=== PATIENT | male | born 1955 | race Caucasian/White ===

== ENCOUNTER → 2021-09-24 04:56 | Outpatient (CLI) | payer BC, SELFPAY ==
[2021-09-24 11:58] LABS: SARS-CoV-2 RNA PCR Negative
== END ==
PROVIDERS: PCP Family Medicine; Visit Provider Family Medicine
DX: R50.9 Fever, unspecified (principal); Z20.822 Contact with and (suspected) exposure to COVID-19
CPT/HCPCS: C9803; U0003; U0005

== ENCOUNTER 2021-10-25 01:35 | Day surgery (SDC) | payer BC, SELFPAY ==
[2021-08-30 15:07] VITALS: BMI 35.9
[2021-10-07 12:57] VITALS: BMI 35.9
--- NOTE | 2021-10-07 12:58 | PC.NURSE ---
Patient states there has been no changes in health history since last phone call. Updated on arrival time and prep instructions.
[2021-10-25 09:20] VITALS: BP 159/79; PULSE 57; RESP 20; TEMP 36.4; O2SAT 99; BMI 35.4
[2021-10-25] MEDS: LACTATED RINGERS 1,000 ML 150 ML IV CONT (09:41)
--- NOTE | 2021-10-25 09:47 | PM.IMHP ---
H&P: HPI History of Present Illness Date/Time: 10/25/21 09:47 Chief Complaint: History of rectal cancer Narrative: This is a 66-year-old white male patient presents for colonoscopy. Patient has a history of rectal carcinoma status post resection 2007. Most recent colonoscopy 2019 revealed no recurrent polyps. Patient family history is significant both father and grandfather have had colon cancer. Patient presents today for surveillance follow-up colonoscopy. Review of Systems Review of Systems: review of systems is noncontributory. [facility] Surgical History Surgical History H/O colonoscopy H/O resection of rectum Family History Family History Mother Hypertension Acute myocardial infarction, Onset Age: 55 Cerebrovascular accident Family history of coronary artery disease Family history of malignant neoplasm of breast in first degree relative Grandparent Hypertension, Onset Age: 50 Acute myocardial infarction, Onset Age: 50 Carcinoma of colon Family history of coronary artery disease, Onset Age: 50 Father Carcinoma of colon Sibling Family history of malignant neoplasm of brain Social History Social History Smoking status: Never smoker Alcohol intake: never Substance use: never Substance use type: does not use Living arrangements: with family Spiritual care concerns: No Meds Home Medications and Allergies Home Medications Medication Instructions Recorded Confirmed Type ostomy adhesive (Stomahesive Paste) 1 applic miscellaneous DAILY 06/03/19 10/25/21 History ostomy supplies (Adhesive Remover #50 ea 06/03/19 10/25/21 History Wipes) ostomy supplies (Protective #1 ea 06/03/19 10/25/21 History Barrier Film Wipes) ostomy supplies (Stomahesive #28.3 grams 06/03/19 10/25/21 History Protective Powder) ostomy supplies 1 3/4 (Natura #1 ea 06/03/19 10/25/21 History Closed Pouch) ostomy supplies 1 3/4 (Natura #1 ea 06/03/19 10/25/21 History Durahesive Skin Barrier) omega 1-ghw-ugy-fish oil 1,200 mg See Rx Instructions PO .COMPLEX 10/04/19 10/25/21 History (144 mg-216 mg) capsule (Fish Oil) sodium sul 1.479 gram-potas ch See Rx Instructions PO PER PKG DIR 08/31/21 10/25/21 Rx 0.188 gram-magnes sul 0.225 gram #24 tabs tablet (Sutab) telmisartan 40 mg tablet See Rx Instructions .Route 10/19/21 10/25/21 Rx .COMPLEX #90 tabs Allergies Allergy/AdvReac Type Severity Reaction Status Date / Time No Known Allergies Allergy Verified 10/25/21 09:26 Vital Signs Vital Signs - 24 hr 10/25/21 09:20 Temperature 97.5 F L Pulse Rate 57 L Respiratory Rate 20 Blood Pressure 159/79 H Pulse Oximetry 99 Oxygen Delivery Room Air Exam Narrative: Physical exam reveals patient be alert. Vital signs stable. HEENT exam is unremarkable. Patient is anicteric. Lungs are clear to auscultation and percussion. Heart is without murmur or extra sounds. Abdomen is obese. Bowel sounds present soft nontender right lower quadrant colostomy appears to be functioning well. Assessment and Plan Assessment and plan (1) History of rectal or anal cancer: Code(s): Z85.048 - Personal history of other malignant neoplasm of rectum, rectosigmoid junction, and anus Status: Acute Assessment and Plan: Patient has a history of rectal cancer and subsequent colostomy in 2007. Plan is for surveillance colonoscopy now and at 3 year intervals. (2) Family history of colon cancer in father: Code(s): Z80.0 - Family history of malignant neoplasm of digestive organs Status: Acute Assessment and Plan: Patient says father and grandfather both have had colon cancer. Continued surveillance at intervals is advised.
--- NOTE | 2021-10-25 09:58 | WPDANESEPPF ---
Anes - Initial Pre Proc Eval Procedure: Operation Date: 10/25/21 10:00 Proposed Procedures p Screening Colonoscopy - Donavon Davies MD Date/Time: 10/25/21 09:58 Surgeon: Donavon Davies MD Pre Op Diagnosis: hx of rectal ca, neoplasm screening Patient Data Age: 66 Gender: M Height: 1.73 m Weight: 105.6 kg Last Vital Signs Temp 97.5 F L 10/25/21 09:20 Pulse 57 L 10/25/21 09:20 Resp 20 10/25/21 09:20 BP 159/79 H 10/25/21 09:20 Pulse Ox 99 10/25/21 09:20 O2 Del Method Room Air 10/25/21 09:20 Allergies Allergy/AdvReac Type Severity Reaction Status Date / Time No Known Allergies Allergy Verified 10/25/21 09:26 Home Medications Medication Instructions Recorded Confirmed Type ostomy adhesive (Stomahesive Paste) 1 applic miscellaneous DAILY 06/03/19 10/25/21 History ostomy supplies (Adhesive Remover #50 ea 06/03/19 10/25/21 History Wipes) ostomy supplies (Protective #1 ea 06/03/19 10/25/21 History Barrier Film Wipes) ostomy supplies (Stomahesive #28.3 grams 06/03/19 10/25/21 History Protective Powder) ostomy supplies 1 3/4 (Natura #1 ea 06/03/19 10/25/21 History Closed Pouch) ostomy supplies 1 3/4 (Natura #1 ea 06/03/19 10/25/21 History Durahesive Skin Barrier) omega 9-rht-liz-fish oil 1,200 mg See Rx Instructions PO .COMPLEX 10/04/19 10/25/21 History (144 mg-216 mg) capsule (Fish Oil) sodium sul 1.479 gram-potas ch See Rx Instructions PO PER PKG DIR 08/31/21 10/25/21 Rx 0.188 gram-magnes sul 0.225 gram #24 tabs tablet (Sutab) telmisartan 40 mg tablet See Rx Instructions .Route 10/19/21 10/25/21 Rx .COMPLEX #90 tabs Patient hx anesthesia problems: none Family hx anesthesia problems: none Results Review: All pre-operative results and documents have been reviewed as part of the pre-operative evaluation. [facility] Surgical History Surgical History H/O colonoscopy H/O resection of rectum Family History Family History Mother Hypertension Acute myocardial infarction, Onset Age: 55 Cerebrovascular accident Family history of coronary artery disease Family history of malignant neoplasm of breast in first degree relative Grandparent Hypertension, Onset Age: 50 Acute myocardial infarction, Onset Age: 50 Carcinoma of colon Family history of coronary artery disease, Onset Age: 50 Father Carcinoma of colon Sibling Family history of malignant neoplasm of brain Social History Social History Smoking status: Never smoker Alcohol intake: never Substance use: never Substance use type: does not use Living arrangements: with family Spiritual care concerns: No Anes - Eval Final PreProcedure Day of Procedure 10/25/21 09:58 Patient weight: obese Heart: regular rate and rhythm Lungs: clear to auscultation Airway: Mallampati scale class II Neurological: alert and oriented Last oral intake: >/= 8 hours ASA classification: III Emergent: no Anesthetic plan: proceed Results Review: All pre-operative results and documents have been reviewed as part of the pre-operative evaluation. Informed Consent: The patient's anesthetic plan and its attendant risks and benefits were discussed with the patient/family/POA. Questions were solicited and answers provided to the satisfaction of the patient/family/POA.
[2021-10-25 10:39] VITALS: BP 115/75; PULSE 55; RESP 24; O2SAT 99
[2021-10-25 10:49] VITALS: BP 110/69; PULSE 50; RESP 16; O2SAT 99
[2021-10-25 10:59] VITALS: BP 127/69; PULSE 50; RESP 16; O2SAT 99
== END 2021-10-25 11:05 | disposition home or self-care (01) ==
PROVIDERS: PCP Family Medicine; Visit Provider Internal Medicine Gastroenterology
PROC: 0DJD8ZZ Inspection of Lower Intestinal Tract, Via Natural or Artificial Opening Endoscopic (ICD-10-PCS; CPT 45378; principal; 2021-10-25 10:00)
DX: Z12.11 Encounter for screening for malignant neoplasm of colon (principal); Z85.048 Personal history of other malignant neoplasm of rectum, rectosigmoid junction, and anus; Z80.0 Family history of malignant neoplasm of digestive organs; Z93.3 Colostomy status; E66.9 Obesity, unspecified; Z68.35 Body mass index [BMI] 35.0-35.9, adult
CPT/HCPCS: 45378; J2704; J7120

== ENCOUNTER 2023-11-29 09:34 | Inpatient (IN) | payer MEDICARE, SELFPAY ==
--- NOTE | ~2023-11-29 | XR_ITS ---
XR abdomen gastric tube insert Ordering provider: Avi Trujillo MD History: . ng tube checking placement . Comparison: None. FINDINGS: BOWEL: Nasogastric tube with the tip in the,. The sidehole is at the gastroesophageal junction. Advan cement by 3 to 4 cm is advised. Slightly dilated bowel loops. ORGANOMEGALY: None. SIGNIFICANT PATHOLOGIC CALCIFICATIONS: None. OTHER: No free air is seen under the diaphragm. IMPRESSION: NO definite ACUTE ABDOMINAL FINDINGS. Nasogastric tube placement. Advancement by 3-4 cm is advised. Reviewed, dictated and finalized at location A.
--- NOTE | ~2023-11-29 | XR_ITS ---
EXAMINATION: XR sm bowel follow through WS DATE: 11/30/2023 16:23 INDICATION: Parastomal hernia. Small bowel obstruction. TECHNIQUE: Advertising Operations Coordinator radiograph(s) of the abdomen was/were obtained. Water-soluble oral contrast was admi nistered, and sequential radiographs of the abdomen were obtained until oral contrast was noted to be in the proximal colon. COMPARISON: CT dated 11/29/2023 FINDINGS: Nasogastric tube tip in proximal side port in the body of the stomach and the quality assurance test program manager image. There is a moderate amount of colonic stool and a few mildly dilated gas-filled loops of small bowel in the sco ut image. Transit time from the stomach to proximal colon was approximately 4 hours. There is normal caliber and mucosal fold pattern throughout the small bowel on the imaging following administration o f contrast. IMPRESSION: 1. Delayed small bowel transit contrast requiring 4 hours to reach the colon but without small bowel dilation which could represent an ileus, partial or resolving small bowel obstruction. Reviewed, dictated and finalized at location A. IMPRESSION: 1. Delayed small bowel transit contrast requiring 4 hours to reach the colon bu t without small bowel dilation which could represent an ileus, partial or resol ving small bowel obstruction.
--- NOTE | ~2023-11-29 | XR_ITS ---
EXAMINATION: XR abdomen obstructive series DATE: 12/01/2023 05:43 INDICATION: Small bowel obstruction. TECHNIQUE: Upright and supine views of the abdomen on 3 radiographs were obtained. COMPARISON: CT abdomen and pelvis 11/29/2023 FINDINGS: There are dilated loops of small bowel. The colon is normal in caliber. There is oral contr ast in the colon. No free intraperitoneal gas. The nasogastric tube tip is in the stomach. IMPRESSION: 1. Persistently dilated small bowel, consistent with partial small bowel obstruction. Reviewed, dictated and finalized at location A. IMPRESSION: 1. Persistently dilated small bowel, consistent with partial small bowel obstru ction.
--- NOTE | ~2023-11-29 | CT_ITS ---
EXAMINATION: CT abdomen pelvis w con DATE: 11/29/2023 11:09 INDICATION: Decreased ostomy output. TECHNIQUE: Computed tomography (CT) of the abdomen and pelvis was performed with 100 mL Omnipaque 350 intravenous contrast. Automated exposure control and iterative reconstruction technique were employe d. The dose-length product was 1291.76 mGy-cm. COMPARISON: CT abdomen and pelvis 07/18/2013 FINDINGS: The visualized portions of the lung bases demonstrate mild atelectasis. No pleural effusion . The heart size is normal. There are coronary artery calcifications. No pericardial effusion. The li vamshi, gallbladder, spleen, pancreas, adrenal glands, and kidneys are normal. The bladder is distended. There is an end colostomy on the right. There is a parastomal hernia containing small bowel. There a re multiple dilated loops of small bowel with transition point at a site of surgery in the distal ile um. There are no pathologically enlarged lymph nodes. There is no free intraperitoneal fluid. There i s postoperative scarring in the presacral region. There are ventral hernias containing fat at the mid line. There is a left-sided ventral hernia containing fat. There is severe lower lumbar spondylosis. IMPRESSION: 1. Small bowel obstruction with transition point in the distal ileum. 2. End colostomy with peristomal hernia containing small bowel. Reviewed, dictated and finalized at location A.
[2023-11-29 09:53] VITALS: BP 177/72; PULSE 73; RESP 16; TEMP 36.4; O2SAT 99
[2023-11-29 10:06] LABS: Basophils Percent Auto 0.2 % (0.2-1.2); Eosinophils Percent Auto 0.2 % (0-4.4); Hematocrit 42.9 % (42.0-52.0); Hemoglobin 12.8 g/dL (14.0-18.0); Immature Granulocyte Absolute 0.06 K/mm3 (0.00-0.031); Immature Granulocyte Percent A 0.3 % (0-0.5); Lymphocytes Absolute Auto 3.14 K/mm3 (0.9-3.2); Lymphocytes Percent Auto 17.8 % (18.3-44.2); Mean Corpuscular HGB Conc 29.8 g/dl (32-36); Mean Corpuscular Hemoglobin 21.5 pg (26-34); Mean Corpuscular Volume 72.2 fl (80-100); Mean Platelet Volume 9.3 fl (7.4-10.4); Monocytes Absolute Auto 1.2 K/mm3 (0.1-0.6); Neutrophils Absolute Auto 13.1 K/mm3 (1.3-6.7); Neutrophils Percent Auto 74.5 % (45.5-73.1); Platelet Count Result 338 k/mm3 (150-375); Red Blood Count 5.94 M/mm3 (4.6-6.20); Red Cell Distribution Width 19.7 % (11.5-14.5); White Blood Count 17.6 K/mm3 (4.5-10.0)
[2023-11-29 10:18] LABS: Alanine Aminotransferase 25 U/L (6-50); Albumin Level 4.6 g/dL (3.5-5.1); Alkaline Phosphatase 98 U/L (38-126); Anion Gap 13 mmol/L (4-12); Aspartate Amino Transferase 39 U/L (17-59); Bilirubin,Total 0.7 mg/dL (0.2-1.3); Blood Urea Nitrogen 24 mg/dL (9-20); Calcium 9.4 mg/dL (8.4-10.2); Carbon Dioxide 25 mmol/L (22-30); Chloride 97 mmol/L (98-107); Estimated CRCL calculation 76 ml/min; Estimated Glomerular Filt Rate > 60; Glucose 145 mg/dL (65-110); Lipase 108 U/L (23-300); Potassium 4.2 mmol/L (3.4-5.0); Sodium 135 mmol/L (137-145)
[2023-11-29 10:34] LABS: Anisocytosis 1+; Platelet Estimate Adequate (Adequate); Schistocytes None Seen
[2023-11-29 10:50] LABS: Add Urine Microscopic? NO; Appearance Urine Clear (Clear); Bilirubin Urine Negative (Negative); Blood Urine Negative (Negative); Color Urine Yellow (Yellow); Glucose Urine UA 3+ mg/dL (Negative); Ketones Urine 1+ mg/dL (Negative); Leukocyte Esterase Ur Negative LEU/UL (Negative); Nitrate Urine Negative (Negative); Protein Urine Negative (Negative); Specific Grav Ur 1.033 (1.001-1.035); Urobilinogen Urine 0.2 mg/dL (<2.0); pH Urine 5.5 (5.0-9.0)
--- NOTE | 2023-11-29 10:53 | ED.NAVMDI ---
HPI - Nausea/Vomiting/Diarrhea General Chief complaint: Nausea/Vomiting/Diarrhea <Dary Mcconnell APRN - Last Filed: 11/29/23 15:02> Stated complaint: possible obstructed ostomy <Dary Mcconnell APRN - Last Filed: 11/29/23 15:02> Time Seen by Provider: 11/29/23 10:03 <Dary Mcconnell APRN - Last Filed: 11/29/23 15:02> Source: patient <Dary Joycelyn Mcconnell APRN - Last Filed: 11/29/23 15:02> Mode of arrival: ambulatory <Dary Mcconnell APRN - Last Filed: 11/29/23 15:02> Limitations: no limitations <Dary Mcconnell APRN - Last Filed: 11/29/23 15:02> History of Present Illness HPI Narrative: Pt is a 68-year-old male who presents to the ER with concerns that his ostomy has not had any output for 48 hours. He reports he has had the colostomy for 13 years. Pt reports he has had nausea & vomiting that started yesterday. He has abdominal pain that started in his LUQ yesterday, now the pain has moved down his abdomen. Pt describes the pain as a cramp that lasts about ten seconds, then subsides. Pt reports he has had this phenomenon occur before when he eats raw fruits or vegetables. He reports he ate two apples two days ago and thinks that's what triggered it. Pt has a history of colorectal cancer, but no longer has a colorectal doctor. This morning he took a Dulcolax to see if that provided him some relief, but he thinks he vomited it back up. <Dary Mcconnell APRN - Last Filed: 11/29/23 15:02> Related Data Home medications: Home Medications Medication Instructions Recorded Confirmed ostomy adhesive (Stomahesive Paste) 1 applic miscellaneous DAILY 06/03/19 11/29/23 ostomy supplies (Stomahesive #28.3 grams 06/03/19 11/29/23 Protective Powder) ostomy supplies 1 3/4 (Natura #1 ea 06/03/19 11/29/23 Durahesive Skin Barrier) omega 2-can-qox-fish oil 1,200 mg 1 cap PO HS 10/04/19 11/29/23 (144 mg-216 mg) capsule (Fish Oil) aspirin 81 mg tablet 81 mg PO HS 11/29/23 11/29/23 atorvastatin 10 mg tablet 10 mg PO HS 11/29/23 11/29/23 dapagliflozin propanediol 10 mg 10 mg PO HS 11/29/23 11/29/23 tablet (Farxiga) metformin 500 mg tablet,extended 500 mg PO BIDWM 11/29/23 11/29/23 release 24 hr semaglutide 3 mg tablet (Rybelsus) 3 mg PO DAILY 11/29/23 11/29/23 telmisartan 40 mg tablet 60 mg PO HS 11/29/23 11/29/23 <Dary Mcconnell APRN - Last Filed: 11/29/23 15:02> Allergies/Adverse reactions: Allergies Allergy/AdvReac Type Severity Reaction Status Date / Time No Known Allergies Allergy Verified 11/29/23 09:35 <Dary Mcconnell APRN - Last Filed: 11/29/23 15:02> Review of Systems Review of Systems: All systems reviewed & are unremarkable except as noted in HPI and below <Dary Mcconnell APRN - Last Filed: 11/29/23 15:02> [facility] Past Medical History Medical History: Medical History Essential hypertension History of rectal or anal cancer Hypertriglyceridemia Obesity DAVID (obstructive sleep apnea) Prediabetes <Dary Mcconnell APRN - Last Filed: 11/29/23 15:02> Surgical History Surgical History: Surgical History H/O colonoscopy H/O resection of rectum History of creation of ostomy <Dary Mcconnell APRN - Last Filed: 11/29/23 15:02> Family History Family History: Family History Mother Hypertension Acute myocardial infarction, Onset Age: 55 Cerebrovascular accident Family history of coronary artery disease Family history of malignant neoplasm of breast in first degree relative Grandparent Hypertension, Onset Age: 50 Acute myocardial infarction, Onset Age: 50 Carcinoma of colon Family history of coronary artery disease, Onset Age: 50 Father Carcinoma of colon Sibling Family history of malignant neoplasm of brain <Al
[2023-11-29 11:00] VITALS: BP 167/68; PULSE 72; RESP 16; O2SAT 96
[2023-11-29] MEDS: FAMOTIDINE 20 MG/2 ML VIAL IV PUSH (11:16)
[2023-11-29] MEDS: ONDANSETRON INJ 4 MG/2 ML VIAL IV PUSH (11:16)
[2023-11-29] MEDS: SODIUM CHLORIDE 0.9% IV 1,000 ML 999 ML IV CONT (11:16)
[2023-11-29 12:00] VITALS: BP 153/76; PULSE 66; RESP 16; O2SAT 98
[2023-11-29 12:04] LABS: Lactic Acid Reflex 1.7 mmol/L (0.7-2.0)
--- NOTE | 2023-11-29 12:34 | PC.NURSE ---
Pt refusing NG tube at this time, states he wants to see what the surgeon recommends. GLADYS lara and she is waiting to hear back from the surgeon,
--- NOTE | 2023-11-29 13:58 | PM.IMHP ---
H&P: HPI History of Present Illness Date/Time: 11/29/23 13:58 Chief Complaint: Nausea, Vomiting Narrative: 68 y/o M presents here with nausea, vomiting with PMH of ostomy secondary to colorectal cancer, hypertension, and pre-diabetic. The patient presents here from home for further evaluation of nausea, vomiting, and decreased ostomy output. Patient reports that he initially started with nausea, vomiting, and left upper quadrant pain that started 2 days ago. He describes the abdominal pain as cramping, radiating intermittently to his right lower quadrant (further described as a spasm), constant but varied in degrees of severity, aggravated by eating, and alleviated by emesis. Has ostomy present due to colorectal cancer, 13-14 years old. No ostomy output over the last 48 hours. Patient reports 4 bowel obstructions (today being the fourth occurrence) in the last 3-4 years. Abdominal discomfort has currently resolved. Denies fever, chills, or body aches. Initial VS at presentation: 97.6? F, HR 73, RR 16, 177/72, and 99% on RA. ED workup showed: WBC 17.6, hemoglobin 12.8, sodium 135, creatinine 1.0 and GFR >60, lactic 1.7, and UA showed 3+ glucose and 1+ ketones. CT showed small bowel obstruction with transition point in the distal ileum and end colostomy with peristomal hernia containing small bowel. Review of Systems Review of Systems: All systems reviewed & are unremarkable except as noted in HPI and below PMFSH Past Medical History Medical History Essential hypertension History of rectal or anal cancer Hypertriglyceridemia Obesity DAVID (obstructive sleep apnea) Prediabetes Surgical History Surgical History H/O colonoscopy H/O resection of rectum History of creation of ostomy Family History Family History Mother Hypertension Acute myocardial infarction, Onset Age: 55 Cerebrovascular accident Family history of coronary artery disease Family history of malignant neoplasm of breast in first degree relative Grandparent Hypertension, Onset Age: 50 Acute myocardial infarction, Onset Age: 50 Carcinoma of colon Family history of coronary artery disease, Onset Age: 50 Father Carcinoma of colon Sibling Family history of malignant neoplasm of brain Social History Social History Smoking status: Never smoker Alcohol intake: never Substance use: never Substance use type: does not use Do You Feel Safe in your Home?: Yes Lack of Transportation: No Lack of Food: Never True Current Housing: I Have Housing Concerned About Future Housing: No Difficulty Paying Gas/Electric Bills: No Difficulty Paying for Meds: No Currently Unemployed: No Education: Master's Degree or Higher Difficulty w/ Childcare or Family Care: No Living arrangements: with family Spiritual care concerns: No Meds Home Medications and Allergies Home Medications Medication Instructions Recorded Confirmed Type ostomy adhesive (Stomahesive Paste) 1 applic miscellaneous DAILY 06/03/19 11/29/23 History ostomy supplies (Stomahesive #28.3 grams 06/03/19 11/29/23 History Protective Powder) ostomy supplies 1 3/4 (Natura #1 ea 06/03/19 11/29/23 History Durahesive Skin Barrier) omega 1-jke-nyi-fish oil 1,200 mg 1 cap PO HS 10/04/19 11/29/23 History (144 mg-216 mg) capsule (Fish Oil) aspirin 81 mg tablet 81 mg PO HS 11/29/23 11/29/23 History atorvastatin 10 mg tablet 10 mg PO HS 11/29/23 11/29/23 History dapagliflozin propanediol 10 mg 10 mg PO HS 11/29/23 11/29/23 History tablet (Farxiga) metformin 500 mg tablet,extended 500 mg PO BIDWM 11/29/23 11/29/23 History release 24 hr semaglutide 3 mg tablet (Rybelsus) 3 mg PO DAILY 11/29/23 11/29/23 History telmisartan 40 m
[2023-11-29 14:07] VITALS: BP 140/65; PULSE 66; RESP 16; TEMP 36.4; O2SAT 100
[2023-11-29] MEDS: SODIUM CHLORIDE 0.9% IV 1,000 ML 100 ML IV CONT (14:29)
[2023-11-29] MEDS: PIPERACILLN/TAZ 3.375GM/NS50ML 3.375 GM/50 ML BAG IVPB ×2 (14:29→20:35)
[2023-11-29 14:32] VITALS: BMI 37.6
--- NOTE | 2023-11-29 14:34 | ADMGEN ---
This patient, Scott Blackwood, was admitted to 3 [facility] Surg Room 310-01. Patient/family oriented to hospital policies and general routines including ID bracelet, bed and alarms, visiting hours, pain management, procedures, bathroom and other care routines, personal items, smoking policy, room service/diet, and visiting hours. Information on how to activate the Rapid Response Team has been discussed. Patient/Family are encouraged to report perceived risks to care and to ask questions if they do not understand what they are told or what they should do.
--- NOTE | 2023-11-29 18:56 | WPDCN ---
Assessment and Plan Assessment and plan (1) SBO (small bowel obstruction): Code(s): K56.609 - Unspecified intestinal obstruction, unspecified as to partial versus complete obstruction Status: Acute Assessment and Plan: Small-bowel obstruction appears to be due to the incarcerated peristomal hernia. At this time the bowel appears to be viable. Continue non operative management with nasogastric tube decompression right now and administration of IV antibiotics. He does not have clinical signs of an acute surgical abdomen. Will get a small-bowel follow-through study tomorrow and see if he has a high-grade obstruction. (2) Parastomal hernia with obstruction and without gangrene: Code(s): K43.3 - Parastomal hernia with obstruction, without gangrene Status: Acute Assessment and Plan: Patient has developed a peristomal hernia with small bowel within the hernia sac which is not reducible at this time. Have discussed with the patient and his spouse at the bedside that if this is not get better with non operative management and he may need surgery to reduce the bowel out of the hernia and repair the parastomal hernia likely with a piece of mesh. Even if this does get better with non operative management at this time I think he would be best served by an elective repair of the peristomal hernia in the future. Surgery will continue to follow. HPI Data of Consult Date/Time: 11/29/23 18:56 Requesting Physician: Cassidy Gtz MD Primary Care Provider: Ike HastingsMD Consult Narrative Reason for consult: Small-bowel obstruction secondary to parastomal hernia Narrative: Scott Blackwood is a 68 year old male who presented to the emergency room with worsening abdominal distention and nausea and no output from his permanent end colostomy for the past 24hours. Patient has a prior history of a distal colon or rectal cancer which was resected at [facility] about 14 years ago. She did have a colorectal anastomosis initially but developed high-grade strictures of the anastomosis and needed frequent dilations of the stricture. Eventually he made a decision with his colorectal surgeon (Germania Zhang) to undergo an abdominal perineal resection and placement of an end colostomy in the right side of his abdomen. Initially the patient's stated he had no issues with the ostomy but over the past 3 years or so he has had 3 episodes where he had little or no output from his ostomy which resolved after few days of going on a liquid diet to be NPO. He has never been admitted to the hospital for a small bowel obstruction. He has noted that the right side of his abdomen seems to be more asymmetric and seems to be getting a little worse over time. He really denies any abdominal pain now. A nasogastric tube was placed in the emergency room and the stomach [place] [id number]. His abdominal exam reveals some tenderness but no peritoneal signs and so it does not seem to have a surgical abdomen at this time. He has had no other abdominal surgery other than the 2 surgeries for his colon resections. Review of Systems Review of Systems: The remainder of the review of systems to include constitutional, HEENT, cardiovascular, respiratory, GI, , integumentary, musculoskeletal, endocrine, immunologic, hematologic, psychiatric, and neurologic are all negative except for which is mentioned above in the HPI. [facility] Surgical History Surgical History H/O colonoscopy H/O resection of rectum Family History Family History Mother Hypertension Acute myocardial infarction, Onset Age: 55 Cerebrovascular accident Family history of coronary artery disease Family history of malignant neoplasm of breast in first degree relative Grandparent Hypertension, Onset Ag
[2023-11-29] MEDS: MAG HYDROX/AL HYDROX/SIMETH 30 ML UDC PO (20:34)
[2023-11-29] MEDS: DICYCLOMINE HCL INJ 20 MG/2 ML VIAL IM (20:39)
[2023-11-29 21:52] VITALS: BP 141/57; PULSE 67; RESP 20; TEMP 36.6; O2SAT 97
[2023-11-30 00:08] LABS: Glucose Point of Care 136 mg/dl (65-105)
[2023-11-30] MEDS: PIPERACILLN/TAZ 3.375GM/NS50ML 3.375 GM/50 ML BAG IVPB ×4 (01:27→21:27)
[2023-11-30] MEDS: SODIUM CHLORIDE 0.9% IV 1,000 ML 100 ML IV CONT ×2 (01:28→15:59)
[2023-11-30 05:25] LABS: Glucose Point of Care 123 mg/dl (65-105)
[2023-11-30 05:40] VITALS: BP 139/59; PULSE 62; RESP 20; TEMP 36.6; O2SAT 94
[2023-11-30] MEDS: MAG HYDROX/AL HYDROX/SIMETH 30 ML UDC PO ×3 (06:04→21:26)
[2023-11-30 07:07] LABS: Basophils Percent Auto 0.3 % (0.2-1.2); Eosinophils Absolute Auto 0.1 K/mm3 (0-0.3); Eosinophils Percent Auto 1.5 % (0-4.4); Hematocrit 37.6 % (42.0-52.0); Hemoglobin 11.3 g/dL (14.0-18.0); Immature Granulocyte Absolute 0.02 K/mm3 (0.00-0.031); Immature Granulocyte Percent A 0.2 % (0-0.5); Lymphocytes Percent Auto 17.9 % (18.3-44.2); Mean Corpuscular HGB Conc 30.1 g/dl (32-36); Mean Corpuscular Volume 73.2 fl (80-100); Mean Platelet Volume 9.4 fl (7.4-10.4); Monocytes Absolute Auto 1.1 K/mm3 (0.1-0.6); Monocytes Percent Auto 11.7 % (2.6-8.5); Neutrophils Absolute Auto 6.1 K/mm3 (1.3-6.7); Neutrophils Percent Auto 68.4 % (45.5-73.1); Platelet Count Result 258 k/mm3 (150-375); Red Blood Count 5.14 M/mm3 (4.6-6.20); Red Cell Distribution Width 19.2 % (11.5-14.5); White Blood Count 8.9 K/mm3 (4.5-10.0)
[2023-11-30 07:11] LABS: Alanine Aminotransferase 21 U/L (6-50); Albumin Level 3.7 g/dL (3.5-5.1); Alkaline Phosphatase 74 U/L (38-126); Anion Gap 9 mmol/L (4-12); Aspartate Amino Transferase 37 U/L (17-59); Bilirubin,Total 0.8 mg/dL (0.2-1.3); Blood Urea Nitrogen 22 mg/dL (9-20); Calcium 8.6 mg/dL (8.4-10.2); Carbon Dioxide 26 mmol/L (22-30); Chloride 101 mmol/L (98-107); Estimated CRCL calculation 69 ml/min; Estimated Glomerular Filt Rate > 60; Glucose 116 mg/dL (65-110); Potassium 4.1 mmol/L (3.4-5.0); Sodium 136 mmol/L (137-145)
[2023-11-30 07:32] LABS: Anisocytosis 1+; Microcytosis 1+ (NORMAL); Platelet Estimate Adequate (Adequate); Schistocytes None Seen
[2023-11-30] MEDS: ENOXAPARIN 40 MG/0.4 ML SYRINGE SUB-Q (08:13)
[2023-11-30] MEDS: PANTOPRAZOLE SODIUM IV 40 MG VIAL IV PUSH (08:13)
[2023-11-30] MEDS: ONDANSETRON INJ 4 MG/2 ML VIAL IV PUSH ×2 (09:39→13:51)
--- NOTE | 2023-11-30 11:56 | WPDPN ---
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 NG tube output is lower now. Abdominal exam is benign. Blood cell count is normal. Will get a water-soluble small bowel series there is NG tube today. If that shows a high-grade obstruction then he likely will have to have surgical management probably tomorrow. Continue supportive management for now. Continue IV antibiotics for now. Subjective Date/time seen: 11/30/23 11:56 Interval history: No acute clinical changes overnight. Patient feels okay. No nausea or vomiting. States he is having a little bit of flatus into his colostomy bag but no stool content. No abdominal pain. Nasogastric tube output is fairly low Exam GI: Other: Abdomen is soft and still mildly distended. Nontender to palpation. Peristomal hernia is still non reducible. Minimal amount of flatus into the colostomy bag. Objective Data Vital Signs Vital Signs: Vital Signs - 24 hr 11/29/23 12:00 11/29/23 14:07 11/29/23 15:05 Temperature 36.4 C L Pulse Rate 66 66 Respiratory Rate 16 16 Blood Pressure 153/76 H 140/65 Pulse Oximetry 98 100 Oxygen Delivery Room Air 11/29/23 21:52 11/29/23 20:00 11/30/23 05:40 Temperature 36.6 C 36.6 C Pulse Rate 67 62 Respiratory Rate 20 20 Blood Pressure 141/57 H 139/59 L Pulse Oximetry 97 94 Oxygen Delivery Room Air 11/30/23 08:00 Temperature Pulse Rate Respiratory Rate Blood Pressure Pulse Oximetry Oxygen Delivery Room Air Intake/Output Intake/Output: Intake & Output 11/27/23 11/28/23 11/29/23 11/30/23 23:59 23:59 23:59 23:59 Intake Total 1100 2220 Output Total 875 Balance 1100 1345 Meds/Results Medications: Active Medications Generic Name Dose Route Start Last Admin Trade Name Freq PRN Reason Stop Dose Admin Al Hydrox/Mg Hydrox/Simethicone 30 ml 11/29/23 20:00 11/30/23 11:27 Mag Hydrox/Al Hydrox/Simeth 30 Ml Udc PO 30 ml Q8H [place] Administration Aspirin 81 mg 12/02/23 09:00 Aspirin 81 Mg Enteric Tablet PO Q48HR [place] Atorvastatin Calcium 10 mg 11/29/23 21:00 11/29/23 20:34 Atorvastatin 10 Mg Tablet PO Not Given HS [place] Dextrose 12.5 gm 11/29/23 19:11 Dextrose 50% 25 Gm/50 Ml Syringe IV PUSH PRN PRN Hypoglycemia Protocol Dicyclomine HCl 20 mg 11/29/23 19:10 11/29/23 20:39 Dicyclomine Hcl Inj 20 Mg/2 Ml Vial IM 20 mg QID PRN Administration Cramping Empagliflozin 25 mg 11/30/23 21:00 Empagliflozin 25 Mg Tablet BY MOUTH HS [place] Enoxaparin Sodium 40 mg 11/30/23 09:00 11/30/23 08:13 Enoxaparin 40 Mg/0.4 Ml Syringe SUB-Q 40 mg DAILY [place] Administration Fish Oil 1 gm 11/29/23 21:00 11/29/23 20:34 [place] 3 Polyunsat Fatty Acids 1 Gm Cap PO Not Given HS [place] Glucagon 1 mg 11/29/23 19:11 Glucagon For Inj 1 Mg Vial IM PRN PRN Hypoglycemia Protocol Glucose 15 gm 11/29/23 19:11 Glucose Oral Gel 15 Gm Of Glucse In 37.5 Gm Tube PO PRN PRN Hypoglycemia Protocol Sodium Chloride 1,000 mls @ 100 mls/hr 11/29/23 13:20 11/30/23 11:27 Normal Saline Iv IV CONT 100 mls/hr .Q10H [place] Administration Piperacillin/Tazobactam/Dextrose 3.375 gm in 50 mls @ 100 mls/hr 11/29/23 20:00 11/30/23 08:43 Zosyn 3.375 Gm/Ns 50 Ml IVPB Infused Q6H [place] Infusion Dextrose 1,000 mls @ 100 mls/hr 11/29/23 19:11 Dextrose 5% 1,000 Ml IVPB PRN PRN Hypoglycemia Protocol Insulin Aspart 2 - 5 units 11/30/23 08:00 11/30/23 11:22 Insulin Aspart (*Bkc) 100 Units/Ml SUB-Q Not Given TIDWM [place] Protocol Morphine Sulfate 2 mg 11/29/23 13:10 Morphine Sulfate (*Crx) 2 Mg/Ml Inj IV
--- NOTE | 2023-11-30 12:05 | PC.NURSE ---
Pt. down via stretcher to radiology for SBFT.
[2023-11-30] MEDS: DICYCLOMINE HCL INJ 20 MG/2 ML VIAL IM (13:51)
[2023-11-30 14:00] VITALS: BP 145/62; PULSE 72; RESP 16; TEMP 36.7; O2SAT 94
--- NOTE | 2023-11-30 14:04 | PM.IMPN ---
Progress Note: A&P Assessment and Plan (1) Small bowel obstruction: Code(s): K56.609 - Unspecified intestinal obstruction, unspecified as to partial versus complete obstruction Status: Acute Assessment and Plan: - CT abdomen/pelvis: 1. Small bowel obstruction with transition point in the distal ileum. 2. End colostomy with peristomal hernia containing small bowel. - General Surgery consulted, Ronnie ZAVALA provided the following recs: SBO likely secondary to incarcerated peristomal hernia nonoperative management: NG, bowel rest, IV fluids, abx plan for small bowel follow-through tomorrow - NPO, NG tube inserted and on low/intermittent suction - started on Zosyn on 11/28 - continue iv fluids - abdominal exams improving - some pain IV ibuprofen ordered - pt seen by surgery MD going for SM bowel throughtoday - pt adviced to walk the halls when possible - long discussion with at the bedside they want him to have hernia surgery yayo after DC from here (2) Parastomal hernia with obstruction and without gangrene: Code(s): K43.3 - Parastomal hernia with obstruction, without gangrene Status: Acute Assessment and Plan: - General Surgery consulted, Ronnie ZAVALA provided the following recs: begin with nonoperative management, if no improvement may need surgical management during this admission. if improved, recommended outpatient elective surgery for repair of periostomal hernia (3) Essential hypertension: Code(s): I10 - Essential (primary) hypertension Status: Acute Assessment and Plan: - chronic and stable - continue home medications: telmisartan 10 mg HS Subjective Date/time seen: 11/30/23 14:04 Interval history: interval history; 68 y/o M presents here with nausea, vomiting with PMH of ostomy secondary to colorectal cancer, hypertension, and pre-diabetic. The patient presents here from home for further evaluation of nausea, vomiting, and decreased ostomy output. Patient reports that he initially started with nausea, vomiting, and left upper quadrant pain that started 2 days ago. He describes the abdominal pain as cramping, radiating intermittently to his right lower quadrant (further described as a spasm), constant but varied in degrees of severity, aggravated by eating, and alleviated by emesis. Has ostomy present due to colorectal cancer, 13-14 years old. No ostomy output over the last 48 hours. Patient reports 4 bowel obstructions (today being the fourth occurrence) in the last 3-4 years. Abdominal discomfort has currently resolved. 11/29 pt admitted for SBO history of ostomy secondary to colorectal cancer, and Parastomal hernia pt states this his 4 time with SBO Pt awaiting SM follow through seen by surgery MD continue conservative management Review of Systems Review of Systems: Abdominal distension improving pt passing gas Exam Const: General: comfortable and no acute distress Other: , male, nontoxic appearance Resp: Effort & Inspection: normal respiratory effort Auscultation: clear to auscultation bilaterally Cardio: Rate: regular rate Rhythm: regular rhythm Other: S1-S2 present without murmur, rub, ectopy GI: Other: abdomen asymmetric, RLQ protruding more than LLQ. ostomy site CDI without output. decrease BS but few are present abdomen less distended as per pt Skin: General skin exam: normal color and no rashes or lesions noted Wounds: no wounds Neuro: Cranial nerves: Yes Equal, round and reactive pupils present Speech: normal speech Motor exam (neuro): 5/5 motor strength present throughout Sensory Exam: normal sensation Other: A&O x4 Extrem: General: normal to inspection Objective Data Vital Signs Vital Signs: Vital Signs - 24 hr 11/29/23 14:07 11/29/23 15:05 11/29/23 21:52 Temperature 36.4 C L 36.6 C Pulse Rate 66 67 Respiratory Rate 16 20 Blood Pressure 140/65 141/5
--- NOTE | 2023-11-30 14:29 | PC.NURSE ---
Pt. back from [facility].
[2023-11-30] MEDS: IBUPROFEN IV 400 MG in SODIUM CHLORIDE 0.9% IV 100 ML 208 MG IVPB (15:10)
[2023-11-30 15:12] LABS: Glucose Point of Care 141 mg/dl (65-105)
[2023-11-30 18:31] LABS: Glucose Point of Care 131 mg/dl (65-105)
[2023-11-30 20:50] VITALS: BP 117/40; PULSE 63; RESP 20; TEMP 36.7; O2SAT 96
[2023-11-30] MEDS: ATORVASTATIN 10 MG TABLET PO (21:26)
[2023-11-30] MEDS: TELMISARTAN 20 MG TABLET 60 MG PO (21:26)
[2023-11-30] MEDS: OMEGA 3 POLYUNSAT FATTY ACIDS 1 GM CAP PO (21:26)
[2023-11-30] MEDS: EMPAGLIFLOZIN 25 MG TABLET BY MOUTH (21:27)
[2023-12-01 00:04] LABS: Glucose Point of Care 103 mg/dl (65-105)
[2023-12-01] MEDS: SODIUM CHLORIDE 0.9% IV 1,000 ML 100 ML IV CONT ×2 (02:15→13:43)
[2023-12-01] MEDS: PIPERACILLN/TAZ 3.375GM/NS50ML 3.375 GM/50 ML BAG IVPB (02:15)
[2023-12-01] MEDS: MAG HYDROX/AL HYDROX/SIMETH 30 ML UDC PO (05:56)
[2023-12-01 06:00] VITALS: BP 133/62; PULSE 61; RESP 16; TEMP 36.3; O2SAT 98
[2023-12-01 06:35] LABS: Glucose Point of Care 96 mg/dl (65-105)
[2023-12-01 07:16] LABS: Basophils Percent Auto 0.3 % (0.2-1.2); Eosinophils Absolute Auto 0.2 K/mm3 (0-0.3); Eosinophils Percent Auto 1.8 % (0-4.4); Hematocrit 37.9 % (42.0-52.0); Hemoglobin 11.2 g/dL (14.0-18.0); Immature Granulocyte Absolute 0.01 K/mm3 (0.00-0.031); Immature Granulocyte Percent A 0.1 % (0-0.5); Lymphocytes Absolute Auto 1.49 K/mm3 (0.9-3.2); Lymphocytes Percent Auto 15.9 % (18.3-44.2); Mean Corpuscular HGB Conc 29.6 g/dl (32-36); Mean Corpuscular Volume 74.6 fl (80-100); Mean Platelet Volume 9.3 fl (7.4-10.4); Monocytes Percent Auto 10.5 % (2.6-8.5); Neutrophils Absolute Auto 6.7 K/mm3 (1.3-6.7); Neutrophils Percent Auto 71.4 % (45.5-73.1); Platelet Count Result 259 k/mm3 (150-375); Red Blood Count 5.08 M/mm3 (4.6-6.20); Red Cell Distribution Width 19.1 % (11.5-14.5); White Blood Count 9.4 K/mm3 (4.5-10.0)
[2023-12-01 07:23] LABS: Anion Gap 10 mmol/L (4-12); Blood Urea Nitrogen 24 mg/dL (9-20); Calcium 8.5 mg/dL (8.4-10.2); Carbon Dioxide 27 mmol/L (22-30); Chloride 105 mmol/L (98-107); Estimated CRCL calculation 59 ml/min; Estimated Glomerular Filt Rate 55; Glucose 111 mg/dL (65-110); Potassium 3.9 mmol/L (3.4-5.0); Sodium 142 mmol/L (137-145)
[2023-12-01 08:31] LABS: Anisocytosis 1+; Platelet Estimate Adequate (Adequate)
[2023-12-01 08:32] LABS: Schistocytes None Seen
[2023-12-01] MEDS: PANTOPRAZOLE SODIUM IV 40 MG VIAL IV PUSH (08:32)
--- NOTE | 2023-12-01 08:41 | PM.IMPN ---
Progress Note: A&P Assessment and Plan (1) Small bowel obstruction: Code(s): K56.609 - Unspecified intestinal obstruction, unspecified as to partial versus complete obstruction Status: Acute Assessment and Plan: - CT abdomen/pelvis: 1. Small bowel obstruction with transition point in the distal ileum. 2. End colostomy with peristomal hernia containing small bowel. - General Surgery consulted, Ronnie ZAVALA provided the following recs: SBO likely secondary to incarcerated peristomal hernia nonoperative management: NG, bowel rest, IV fluids, abx plan for small bowel follow-through tomorrow - NPO, NG tube inserted and on low/intermittent suction - started on Zosyn on 11/28 - continue iv fluids - abdominal exams improving - some pain IV ibuprofen ordered - pt seen by surgery MD going for SM bowel throughtoday - pt advised to walk the halls when possible - long discussion with at the bedside they want him to have hernia surgery yayo after DC from here 11/30- abd xray is consistent with sbo OK to advance diet to clear liquid per DR Trujillo - geovanni tomorrow if tolerated well -decrease iv fluids, continue to ambulate (2) Parastomal hernia with obstruction and without gangrene: Code(s): K43.3 - Parastomal hernia with obstruction, without gangrene Status: Acute Assessment and Plan: - General Surgery consulted, Ronnie ZAVALA provided the following recs: begin with nonoperative management, if no improvement may need surgical management during this admission. if improved, recommended outpatient elective surgery for repair of periostomal hernia 11/30OK to advance diet to clear liquid per DR Trujillo - geovanni tomorrow if tolerated well -decrease iv fluids, continue to ambulate (3) Essential hypertension: Code(s): I10 - Essential (primary) hypertension Status: Acute Assessment and Plan: - chronic and stable - continue home medications: telmisartan 10 mg HS Time Spent With Patient Time with patient: Greater than 35 minutes Subjective Date/time seen: 12/01/23 08:41 Interval history: interval history; 68 y/o M presents here with nausea, vomiting with PMH of ostomy secondary to colorectal cancer, hypertension, and pre-diabetic. The patient presents here from home for further evaluation of nausea, vomiting, and decreased ostomy output. Patient reports that he initially started with nausea, vomiting, and left upper quadrant pain that started 2 days ago. He describes the abdominal pain as cramping, radiating intermittently to his right lower quadrant (further described as a spasm), constant but varied in degrees of severity, aggravated by eating, and alleviated by emesis. Has ostomy present due to colorectal cancer, 13-14 years old. No ostomy output over the last 48 hours. Patient reports 4 bowel obstructions (today being the fourth occurrence) in the last 3-4 years. Abdominal discomfort has currently resolved. 11/29 pt admitted for SBO history of ostomy secondary to colorectal cancer, and Parastomal hernia pt states this his 4 time with SBO Pt awaiting SM follow through seen by surgery MD continue conservative management 11/30- assuming care. pt is seen and examined. He is doing well- had NG tube removed- ahppy about it- just some throat discomfort- DR Trujillo advanced his diet to clear liquids- he is tolerating it well. NOt much output in colostomy but gas noted. Review of Systems Review of Systems: Abdominal distension improving pt passing gas All systems reviewed & are unremarkable except as noted in HPI and below Exam Narrative: abdomen asymmetric, RLQ protruding more than LLQ. ostomy site CDI without output. decreased bowel sounds in LLQ, normoactive in all other quadrants. Const: General: comfortable and no acute distress Other: , male, nontoxic appearance HENMT: Face/Nose/Sinus: Normal nares present Mouth: Yes moist mucous membranes Other:
[2023-12-01 12:11] LABS: Glucose Point of Care 135 mg/dl (65-105)
[2023-12-01 14:00] VITALS: BP 131/62; PULSE 66; RESP 18; TEMP 37.4; O2SAT 98
--- NOTE | 2023-12-01 14:19 | WPDPN ---
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 We will go ahead remove his NG tube today and start him on some clear liquids. If he tolerates clear liquids then hopefully can advance his diet in a more tomorrow. Stop IV antibiotics. Decrease his IV fluids. Continue supportive management and use Lovenox for DVT prophylaxis and Protonix for GI prophylaxis. Continue to walk in the hallways. Subjective Date/time seen: 12/01/23 14:19 Interval history: Patient is doing well this morning. had copious amounts of output through his end colostomy through the night after of his small-bowel follow-through study was done. No nausea vomiting and abdominal pain. White blood cell count is normal. No fever. No tachycardia. Exam GI: Other: Abdomen is obese but soft. No tenderness around the colostomy or peristomal hernia. Objective Data Vital Signs Vital Signs: Vital Signs - 24 hr 11/30/23 20:50 12/01/23 06:00 12/01/23 08:30 Temperature 36.7 C 36.3 C L Pulse Rate 63 61 Respiratory Rate 20 16 Blood Pressure 117/40 L 133/62 Pulse Oximetry 96 98 Oxygen Delivery Room Air Intake/Output Intake/Output: Intake & Output 11/28/23 11/29/23 11/30/23 12/01/23 23:59 23:59 23:59 23:59 Intake Total 1100 2784 2000 Output Total 1175 7 Balance 1100 1609 1992 Meds/Results Medications: Active Medications Generic Name Dose Route Start Last Admin Trade Name Freq PRN Reason Stop Dose Admin Aspirin 81 mg 12/02/23 09:00 Aspirin 81 Mg Enteric Tablet PO Q48HR [place] Atorvastatin Calcium 10 mg 11/29/23 21:00 11/30/23 21:26 Atorvastatin 10 Mg Tablet PO 10 mg HS [place] Administration Dextrose 12.5 gm 11/29/23 19:11 Dextrose 50% 25 Gm/50 Ml Syringe IV PUSH PRN PRN Hypoglycemia Protocol Dicyclomine HCl 20 mg 11/29/23 19:10 11/30/23 13:51 Dicyclomine Hcl Inj 20 Mg/2 Ml Vial IM 20 mg QID PRN Administration Cramping Empagliflozin 25 mg 11/30/23 21:00 11/30/23 21:27 Empagliflozin 25 Mg Tablet BY MOUTH 25 mg HS [place] Administration Enoxaparin Sodium 40 mg 11/30/23 09:00 12/01/23 08:31 Enoxaparin 40 Mg/0.4 Ml Syringe SUB-Q Not Given DAILY [place] Fish Oil 1 gm 11/29/23 21:00 11/30/23 21:26 [place] 3 Polyunsat Fatty Acids 1 Gm Cap PO 1 gm HS [place] Administration Glucagon 1 mg 11/29/23 19:11 Glucagon For Inj 1 Mg Vial IM PRN PRN Hypoglycemia Protocol Glucose 15 gm 11/29/23 19:11 Glucose Oral Gel 15 Gm Of Glucse In 37.5 Gm Tube PO PRN PRN Hypoglycemia Protocol Sodium Chloride 1,000 mls @ 100 mls/hr 11/29/23 13:20 12/01/23 13:43 Normal Saline Iv IV CONT 100 mls/hr .Q10H [place] Administration Dextrose 1,000 mls @ 100 mls/hr 11/29/23 19:11 Dextrose 5% 1,000 Ml IVPB PRN PRN Hypoglycemia Protocol Ibuprofen 400 mg/ Sodium 104 mls @ 208 mls/hr 11/30/23 13:53 11/30/23 15:40 Chloride IVPB Infused Q6H PRN Infusion Pain Rated 4-6 Insulin Aspart 2 - 5 units 11/30/23 08:00 12/01/23 12:52 Insulin Aspart (*Bkc) 100 Units/Ml SUB-Q Not Given TIDWM [facility] Protocol Morphine Sulfate 2 mg 11/29/23 13:10 Morphine Sulfate (*Crx) 2 Mg/Ml Inj IV PUSH Q2H PRN Pain Rated 7-10 Ondansetron HCl 4 mg 11/29/23 13:10 11/30/23 13:51 Ondansetron Inj 4 Mg/2 Ml Vial IV PUSH 4 mg Q4H PRN Administration Nausea Pantoprazole Sodium 40 mg 11/30/23 09:00 12/01/23 08:32 Pantoprazole Sodium Iv 40 Mg Vial IV PUSH 40 mg QAM [place] Administration Telmisartan 60 mg 11/30/23 21:00 11/30/23 21:26 Telmisartan 20 Mg Tablet PO 60 mg HS [place] Administration Radiology Res
[2023-12-01 18:39] LABS: Glucose Point of Care 135 mg/dl (65-105)
[2023-12-01] MEDS: TELMISARTAN 20 MG TABLET 60 MG PO (20:53)
[2023-12-01] MEDS: OMEGA 3 POLYUNSAT FATTY ACIDS 1 GM CAP PO (20:53)
[2023-12-01] MEDS: EMPAGLIFLOZIN 25 MG TABLET BY MOUTH (20:54)
[2023-12-01] MEDS: ATORVASTATIN 10 MG TABLET PO (20:54)
[2023-12-01] MEDS: PHENOL/SOD PHENO SPRAY CHERRY (*BKC) 1 SPRAY MUCOUS MEM (21:02)
[2023-12-01 21:37] VITALS: BP 144/63; PULSE 65; RESP 16; TEMP 36.5; O2SAT 99
[2023-12-02 00:19] LABS: Glucose Point of Care 96 mg/dl (65-105)
[2023-12-02] MEDS: SODIUM CHLORIDE 0.9% IV 1,000 ML 50 ML IV CONT (03:25)
[2023-12-02 06:00] VITALS: BP 133/67; PULSE 58; RESP 14; TEMP 36.3; O2SAT 99
[2023-12-02 09:02] LABS: Glucose Point of Care 91 mg/dl (65-105)
[2023-12-02] MEDS: ASPIRIN 81 MG ENTERIC TABLET PO (09:44)
[2023-12-02] MEDS: PANTOPRAZOLE SODIUM IV 40 MG VIAL IV PUSH (09:44)
[2023-12-02] MEDS: PHENOL/SOD PHENO SPRAY CHERRY (*BKC) 1 SPRAY MUCOUS MEM (09:46)
--- NOTE | 2023-12-02 10:25 | PM.IMPN ---
Progress Note: A&P Assessment and Plan (1) Small bowel obstruction: Code(s): K56.609 - Unspecified intestinal obstruction, unspecified as to partial versus complete obstruction Status: Acute Assessment and Plan: - CT abdomen/pelvis: 1. Small bowel obstruction with transition point in the distal ileum. 2. End colostomy with peristomal hernia containing small bowel. - General Surgery consulted, Ronnie ZAVALA provided the following recs: SBO likely secondary to incarcerated peristomal hernia nonoperative management: NG, bowel rest, IV fluids, abx plan for small bowel follow-through tomorrow - NPO, NG tube inserted and on low/intermittent suction - started on Zosyn on 11/28 - continue iv fluids - abdominal exams improving - some pain IV ibuprofen ordered - pt seen by surgery MD going for SM bowel throughtoday - pt advised to walk the halls when possible - long discussion with at the bedside they want him to have hernia surgery yayo after DC from here 11/30- abd xray is consistent with sbo OK to advance diet to clear liquid per DR Trujillo - geovanni tomorrow if tolerated well -decrease iv fluids, continue to ambulate (2) Parastomal hernia with obstruction and without gangrene: Code(s): K43.3 - Parastomal hernia with obstruction, without gangrene Status: Acute Assessment and Plan: - General Surgery consulted, Ronnie ZAVALA provided the following recs: begin with nonoperative management, if no improvement may need surgical management during this admission. if improved, recommended outpatient elective surgery for repair of periostomal hernia 11/30OK to advance diet to clear liquid per DR Trujillo - geovanni tomorrow if tolerated well -decrease iv fluids, continue to ambulate (3) Essential hypertension: Code(s): I10 - Essential (primary) hypertension Status: Acute Assessment and Plan: - chronic and stable - continue home medications: telmisartan 10 mg HS Subjective Date/time seen: 12/02/23 10:25 Interval history: interval history; 68 y/o M presents here with nausea, vomiting with PMH of ostomy secondary to colorectal cancer, hypertension, and pre-diabetic. The patient presents here from home for further evaluation of nausea, vomiting, and decreased ostomy output. Patient reports that he initially started with nausea, vomiting, and left upper quadrant pain that started 2 days ago. He describes the abdominal pain as cramping, radiating intermittently to his right lower quadrant (further described as a spasm), constant but varied in degrees of severity, aggravated by eating, and alleviated by emesis. Has ostomy present due to colorectal cancer, 13-14 years old. No ostomy output over the last 48 hours. Patient reports 4 bowel obstructions (today being the fourth occurrence) in the last 3-4 years. Abdominal discomfort has currently resolved. 11/29 pt admitted for SBO history of ostomy secondary to colorectal cancer, and Parastomal hernia pt states this his 4 time with SBO Pt awaiting SM follow through seen by surgery MD continue conservative management 11/30- assuming care. pt is seen and examined. He is doing well- had NG tube removed- ahppy about it- just some throat discomfort- DR Trujillo advanced his diet to clear liquids- he is tolerating it well. NOt much output in colostomy but gas noted. 12/01- pt is seen and examined Review of Systems Review of Systems: Abdominal distension improving pt passing gas All systems reviewed & are unremarkable except as noted in HPI and below Exam Narrative: abdomen asymmetric, RLQ protruding more than LLQ. ostomy site CDI without output. decreased bowel sounds in LLQ, normoactive in all other quadrants. Const: General: comfortable and no acute distress Other: , male, nontoxic appearance HENMT: Face/Nose/Sinus: Normal nares present Mouth: Yes moist mucous membranes Other: NG in place. Eyes: Genera
--- NOTE | 2023-12-02 10:33 | WPDPN ---
Progress Note: A&P Assessment and Plan (1) Parastomal hernia with obstruction and without gangrene: Code(s): K43.3 - Parastomal hernia with obstruction, without gangrene Status: Acute Assessment and Plan: Patient has partial small-bowel obstruction has resolved. He likely still has some degree of partial small-bowel obstruction but it is not bad enough at this point to obstruction from eating. He has had return of colostomy function. I think he would be best served with an elective repair of this parastomal hernia with a laparoscopic approach if possible. He had all of his prior colon surgery and placement of the ostomy at [facility] several years ago. I gave him the option of following up with me or a referral to [facility] to hernia specialist there. If he needs to have a down he would like to be referred to [facility]. Rachid make referral for this patient to a hernia specialist at [facility] next week. Patient was told to call my office if he does not hear from [place] [facility] in the next week or so for a consultation. Subjective Date/time seen: 12/02/23 10:33 Interval history: Patient has no complaints. He feels well today. Feels he is back to his baseline in terms of his abdomen. No nausea or vomiting with NG tube out. He has tolerated clear liquids. Having normal output into his colostomy bag. Exam GI: Other: Abdomen is soft and not distended. He has I right peristomal hernia which is not reducible but nontender. Output from his colostomy is copious. Objective Data Vital Signs Vital Signs: Vital Signs - 24 hr 12/01/23 14:00 12/01/23 21:37 12/02/23 06:00 Temperature 37.4 C 36.5 C 36.3 C L Pulse Rate 66 65 58 L Respiratory Rate 18 16 14 Blood Pressure 131/62 144/63 H 133/67 Pulse Oximetry 98 99 99 Intake/Output Intake/Output: Intake & Output 11/29/23 11/30/23 12/01/23 12/02/23 23:59 23:59 23:59 23:59 Intake Total 1100 2784 3910 240 Output Total 1175 7 629 Balance 1100 1609 3903 -389 Meds/Results Medications: Active Medications Generic Name Dose Route Start Last Admin Trade Name Freq PRN Reason Stop Dose Admin Aspirin 81 mg 12/02/23 09:00 12/02/23 09:44 Aspirin 81 Mg Enteric Tablet PO 81 mg Q48HR [place] Administration Atorvastatin Calcium 10 mg 11/29/23 21:00 12/01/23 20:54 Atorvastatin 10 Mg Tablet PO 10 mg HS [place] Administration Dextrose 12.5 gm 11/29/23 19:11 Dextrose 50% 25 Gm/50 Ml Syringe IV PUSH PRN PRN Hypoglycemia Protocol Dicyclomine HCl 20 mg 11/29/23 19:10 11/30/23 13:51 Dicyclomine Hcl Inj 20 Mg/2 Ml Vial IM 20 mg QID PRN Administration Cramping Empagliflozin 25 mg 11/30/23 21:00 12/01/23 20:54 Empagliflozin 25 Mg Tablet BY MOUTH 25 mg HS [place] Administration Enoxaparin Sodium 40 mg 11/30/23 09:00 12/02/23 08:46 Enoxaparin 40 Mg/0.4 Ml Syringe SUB-Q Not Given DAILY [place] Fish Oil 1 gm 11/29/23 21:00 12/01/23 20:53 [place] 3 Polyunsat Fatty Acids 1 Gm Cap PO 1 gm HS [place] Administration Glucagon 1 mg 11/29/23 19:11 Glucagon For Inj 1 Mg Vial IM PRN PRN Hypoglycemia Protocol Glucose 15 gm 11/29/23 19:11 Glucose Oral Gel 15 Gm Of Glucse In 37.5 Gm Tube PO PRN PRN Hypoglycemia Protocol Sodium Chloride 1,000 mls @ 50 mls/hr 11/29/23 13:20 12/02/23 03:25 Normal Saline Iv IV CONT 50 mls/hr .Q20H [place] Administration Dextrose 1,000 mls @ 100 mls/hr 11/29/23 19:11 Dextrose 5% 1,000 Ml IVPB PRN PRN Hypoglycemia Protocol Ibuprofen 400 mg/ Sodium 104 mls @ 208 mls/hr 11/30/23 13:53 11/30/23 15:40 Chloride IVPB Infused Q6H PRN Infusion Pain Rated 4-6 Insulin Aspart 2 - 5 units 11/30/23 08:00 12/02/23 08:26 Insulin Aspart (*Bkc) 100 Units/Ml SUB-Q Not Given TIDWM [place] Protocol Morphine Sulfate 2 mg 11/29/23 13:10 Morphine Sulfate (*Crx) 2 Mg/Ml Inj IV PUSH Q2H PRN
[2023-12-02 12:09] LABS: Hematocrit 37.5 % (42.0-52.0); Hemoglobin 10.8 g/dL (14.0-18.0); Mean Corpuscular HGB Conc 28.8 g/dl (32-36); Mean Corpuscular Hemoglobin 21.5 pg (26-34); Mean Corpuscular Volume 74.7 fl (80-100); Platelet Count Result 270 k/mm3 (150-375); Red Blood Count 5.02 M/mm3 (4.6-6.20); Red Cell Distribution Width 19.6 % (11.5-14.5); White Blood Count 8.6 K/mm3 (4.5-10.0)
[2023-12-02 12:20] LABS: Anion Gap 11 mmol/L (4-12); Blood Urea Nitrogen 20 mg/dL (9-20); Calcium 8.7 mg/dL (8.4-10.2); Carbon Dioxide 25 mmol/L (22-30); Chloride 104 mmol/L (98-107); Estimated CRCL calculation 76 ml/min; Estimated Glomerular Filt Rate > 60; Glucose 122 mg/dL (65-110); Potassium 3.2 mmol/L (3.4-5.0); Sodium 140 mmol/L (137-145)
[2023-12-02 14:00] VITALS: BP 132/61; PULSE 58; RESP 20; TEMP 36.8; O2SAT 99
--- NOTE | 2023-12-02 14:46 | PM.DS ---
DS: Admitting Diagnosis Discharge Date 12/01 Admitting Diagnosis n/v DS: Summary Hospital Course Hospital Course: interval history; 68 y/o M presents here with nausea, vomiting with PMH of ostomy secondary to colorectal cancer, hypertension, and pre-diabetic. The patient presents here from home for further evaluation of nausea, vomiting, and decreased ostomy output. Patient reports that he initially started with nausea, vomiting, and left upper quadrant pain that started 2 days ago. He describes the abdominal pain as cramping, radiating intermittently to his right lower quadrant (further described as a spasm), constant but varied in degrees of severity, aggravated by eating, and alleviated by emesis. Has ostomy present due to colorectal cancer, 13-14 years old. No ostomy output over the last 48 hours. Patient reports 4 bowel obstructions (today being the fourth occurrence) in the last 3-4 years. Abdominal discomfort has currently resolved. 11/29 pt admitted for SBO history of ostomy secondary to colorectal cancer, and Parastomal hernia pt states this his 4 time with SBO Pt awaiting SM follow through seen by surgery MD continue conservative management 11/30- assuming care. pt is seen and examined. He is doing well- had NG tube removed- ahppy about it- just some throat discomfort- DR Trujillo advanced his diet to clear liquids- he is tolerating it well. NOt much output in colostomy but gas noted. 12/01- pt is seen and examined. He is tolerating clear liquid well. Dr Trujillo advanced him to low fiber diet. IF tolertaed well for lunch and diner- ok to discharge with a close f/u as an oupt. Status at Discharge Functional status at discharge: independent ambulation Overall status at discharge: patient is back to baseline Time Spent with Patient Time attestation: Total time spent providing and/or coordinating discharge services: Time spent: Less than 30 minutes Exam Const: General: comfortable Resp: Effort & Inspection: normal respiratory effort Auscultation: clear to auscultation bilaterally Cardio: Rate: regular rate Rhythm: regular rhythm GI: GI Palp: Yes Soft to palpation Other: colostomy in place Skin: General skin exam: normal color Psych: Mental Status: mental status grossly normal Affect: normal affect DS: Data Data Completed and Pending Completed studies during hospitalization: abd ct, small carolyn xray Labs on day of discharge: Labs from last 24 hours 12/02/23 12/02/23 12/02/23 11:44 08:58 00:09 WBC 8.6 RBC 5.02 Hgb 10.8 L Hct 37.5 L MCV 74.7 L MCH 21.5 L MCHC 28.8 L RDW 19.6 H Plt Count 270 MPV 9.0 Sodium 140 Potassium 3.2 L Chloride 104 Carbon Dioxide 25 Anion Gap 11 BUN 20 Creatinine 1.00 Estim Creat Clear Calc 76 Estimated GFR > 60 Glucose 122 H POC Capillary Glucose 91 96 Calcium 8.7 12/01/23 18:36 WBC RBC Hgb Hct MCV MCH MCHC RDW Plt Count MPV Sodium Potassium Chloride Carbon Dioxide Anion Gap BUN Creatinine Estim Creat Clear Calc Estimated GFR Glucose POC Capillary Glucose 135 H Calcium Discharge Plan Discharge Consulting providers: Avi Trujillo Discharging Clinician: Kenia Wan Patient Disposition: Home, Self-Care Activity: unlimited Diet: low fiber Discharge Instructions: Patient may discharge home today if tolerating solid food. Dr. Trujillo will make referral to [facility] for the patient to be seen by hernia surgeon there electively. Patient was instructed to call Dr. Trujillo office if he has not heard from [facility] in the next week. Patient instructed to come back to [facility] he has further issues prior to being seen by a surgeon at [place] or present to the emergency room at [place]. He does not need a specific follow-up see Dr. Trujillo in the office on a certain date as he is going to be referred out to [place]. Patient Instructions: Antibiotic Form, Bowel Ob
[2023-12-02 19:25] LABS: Glucose Point of Care 89 mg/dl (65-105)
== END 2023-12-02 17:42 | disposition home or self-care (01) | DRG 395 ==
LOC: ANHED 10:40 → ANH3MEDSUR 13:36
PROVIDERS: Physician Assistant; Student in an Organized Health Care Education/Training Program; Surgery; Admitting Provider Family Medicine; Emergency Provider Registered Nurse; PCP Family Medicine; Visit Provider Nurse Practitioner
DX: K43.3 Parastomal hernia with obstruction, without gangrene (principal); I10 Essential (primary) hypertension; G47.33 Obstructive sleep apnea (adult) (pediatric); R73.03 Prediabetes; Z85.048 Personal history of other malignant neoplasm of rectum, rectosigmoid junction, and anus; Z93.3 Colostomy status
CPT/HCPCS: 36415; 74019; 74177; 74250; 80048; 80053; 81003; 82948; 83605; 83690; 85025; 85027; 99285; A9270; J0500; J1650; J1741; J2405; J2470; J2543; J7030; Q9967